=== PATIENT | female | born 1965 | race Two or more races ===

== ENCOUNTER 2016-05-23 20:31 | Emergency (ER) | payer MEDICAID ==
[~2016-05-23] VITALS: Ht 165.1 cm; Wt 63.5 kg
[2016-05-23 22:12] VITALS: BP 129/67
== END 2016-05-23 22:13 | disposition home or self-care (01) ==
LOC: ER 20:36
DX: J20.9 Acute bronchitis, unspecified (principal); F15.10 Other stimulant abuse, uncomplicated; F17.210 Nicotine dependence, cigarettes, uncomplicated
CPT/HCPCS: 71020

== ENCOUNTER 2017-10-13 10:37 | Emergency (ER) | payer MEDICAID ==
[~2017-10-13] VITALS: Ht 157.5 cm; Wt 63.5 kg
[2017-10-13 10:45] VITALS: BP 126/80
== END 2017-10-13 11:30 | disposition home or self-care (01) ==
LOC: ER 10:37
DX: S71.152D Open bite, left thigh, subsequent encounter (principal); F17.210 Nicotine dependence, cigarettes, uncomplicated; Z98.51 Tubal ligation status; W54.0XXD Bitten by dog, subsequent encounter

== ENCOUNTER → 2019-07-12 | Emergency (ER) | payer MEDICAID ==
[~2019-07-12] VITALS: Ht 149.9 cm; Wt 63.5 kg
[~2019-07-12] MED LIST: KETOROLAC TROMETH 15 mg/ml 1ML VL IV ONE; KETOROLAC TROMETH 30 MG/ML 1ML VIAL ONE; ONDANSETRON HCL 4 MG/2 ML VIAL IV ONE; PROMETHAZINE HCL 25 MG/ML 1ML IV ONE; SODIUM CHLORIDE 0.9% 1,000 ML IV ONE; SODIUM CHLORIDE 0.9% 2,000 ML IV ONE
[2019-07-12 05:29] LABS: Basophils # (auto) 0 10 ^3/uL (0-0.2); Basophils % (auto) 0.3 % (0.0-2.0); Eosinophils # (auto) 0.3 10 ^3/uL (0-0.8); Eosinophils % (auto) 3.1 % (0.0-7.0); Hematocrit 37.5 % (36.0-46.0); Hemoglobin 12.5 g/dL (12.2-16.2); Lymphocytes # (auto) 2.8 10 ^3/uL (0.4-5.4); Lymphocytes % (auto) 31.3 % (10.0-50.0); Mean Corpuscular Hgb Conc. 33.4 g/dL (32.0-36.0); Mean Corpuscular Volume 90.1 fL (80.0-100.0); Monocytes # (auto) 0.6 10 ^3/uL (0-1.3); Monocytes % (auto) 6.5 % (0.0-12.0); Neutrophils # (auto) 5.3 10 ^3/uL (1.6-8.6); Neutrophils % (auto) 58.8 % (37.0-80.0); Platelet Count (auto) 398 10^3/uL (140-450); Red Blood Cells 4.16 10^6/uL (4.0-5.20); Red Cell Distribution Width 12.8 % (11.8-14.3)
[2019-07-12 05:43] LABS: INR 1.01 (0.9-1.15)
[2019-07-12 05:46] LABS: Acetaminophen < 2.0 ug/mL (10-30); Alanine Aminotransferase 20 U/L (13-56); Albumin 3.5 g/dL (3.4-5.0); Amylase 46 U/L (25-115); Anion Gap 7 (5-15); Aspartate Aminotransferase 12 U/L (15-37); BUN/Creatinine Ratio 27.3; Blood Alcohol < 3.0 mg/dL (0-5); Blood Urea Nitrogen 12 mg/dL (7-18); Calcium 9.1 mg/dL (8.5-10.1); Carbon Dioxide 25 mmol/L (21-32); Chloride 103 mmol/L (98-107); GFR African American 191 mL/min; GFR Non-African American 158 mL/min; Glucose 119 mg/dL (74-106); Lipase 81 U/L (73-393); Magnesium 1.6 mg/dL (1.6-2.6); Potassium 3.5 mmol/L (3.5-5.1); Salicylate < 1.7 mg/dL (2.8-20.0); Sodium 135 mmol/L (136-145)
[2019-07-12 05:50] LABS: Alkaline Phosphatase 100 U/L (45-117); Bilirubin, Total 0.4 mg/dL (0.2-1.0); Total Protein 7.5 g/dL (6.4-8.2)
[2019-07-12 06:47] LABS: Urine Bacteria NONE SEEN /hpf (None Seen); Urine Blood Negative /uL (Negative); Urine Specific Gravity 1.009 (1.001-1.035); Urine WBC <1 /hpf (0 - 5)
[2019-07-12 07:10] LABS: Alcohol, Urine < 3.0 mg/dL (0-5); Amphetamine Screen, Urine POSITIVE (NEGATIVE); Barbiturate Scree,Urine NEGATIVE (NEGATIVE); Benzodiazephine Screen, Urine NEGATIVE (NEGATIVE); Cannabinoid Screen, Urine POSITIVE (NEGATIVE); Cocaine Screen, Urine NEGATIVE (NEGATIVE); Opiate Scree,Urine NEGATIVE (NEGATIVE); Phencyclidine Screen, Urine NEGATIVE (NEGATIVE)
[2019-07-12 08:02] VITALS: BP 105/58
== END | disposition home or self-care (01) ==
LOC: EDUNIT# 04:23 → EDBD 04:37 → ER 04:37
DX: K29.00 Acute gastritis without bleeding (principal); K59.00 Constipation, unspecified; E86.0 Dehydration; F19.10 Other psychoactive substance abuse, uncomplicated
CPT/HCPCS: 36415; 71045; 74176; 80053; 80307; 80320; 80329; 81001; 82150; 83690; 83735; 85025; 85610; 85730; 96361; 96374; 96375; 99285; J1885; J2405; J2550; J7030; 93005

== ENCOUNTER 2023-05-20 20:25 | Emergency (ER) | payer MEDICAID, OTHER ==
[~2023-05-20] VITALS: Ht 149.9 cm; Wt 71.3 kg
[2023-05-20] MEDS ORDERED: CYCL-837 PO (23:38)
[2023-05-20] MEDS ORDERED: IBUP-1456 PO (23:38)
[2023-05-20 23:45] VITALS: PULSE 107; RESP 18; O2SAT 98
[2023-05-20] MEDS ORDERED: KETOROLAC TROMETH 60MG/2ML VIAL IM ONE (23:45)
[2023-05-20 23:52] VITALS: BP 121/73; PULSE 107; RESP 18; TEMP 98.4; O2SAT 98
== END 2023-05-20 23:38 | disposition home or self-care (01) ==
LOC: ER 20:25
DX: M54.42 Lumbago with sciatica, left side (principal); F17.210 Nicotine dependence, cigarettes, uncomplicated; Z79.1 Long term (current) use of non-steroidal anti-inflammatories (NSAID); Z79.899 Other long term (current) drug therapy
CPT/HCPCS: 96372; 99283; J1885

== ENCOUNTER 2023-08-30 16:59 | Emergency (ER) | payer OTHER ==
[~2023-08-30] VITALS: Ht 149.9 cm; Wt 66.6 kg
[~2023-08-30 16:59] MED LIST changes: +CYCL-837 PO; +IBUP-1456 PO; -KETOROLAC TROMETH 15 mg/ml 1ML VL IV ONE; -KETOROLAC TROMETH 30 MG/ML 1ML VIAL ONE; -ONDANSETRON HCL 4 MG/2 ML VIAL IV ONE; -PROMETHAZINE HCL 25 MG/ML 1ML IV ONE; -SODIUM CHLORIDE 0.9% 1,000 ML IV ONE; -SODIUM CHLORIDE 0.9% 2,000 ML IV ONE
[2023-08-30 17:15] VITALS: BP 146/71; PULSE 128; RESP 18; TEMP 99.5; O2SAT 96
[2023-08-30] MEDS ORDERED: IBUP-1455 PO (19:31)
[2023-08-30] MEDS ORDERED: CYCL-611 PO (19:31)
[2023-08-30] MEDS: DexAMETHasone SOD PHOS 10MG/1ML VIAL INJ IM ONE (21:01)
[2023-08-30] MEDS: KETOROLAC TROMETH 60MG/2ML VIAL IM ONE (21:02)
== END 2023-08-30 22:30 | disposition home or self-care (01) ==
LOC: ER 16:59
DX: S33.5XXA Sprain of ligaments of lumbar spine, initial encounter (principal); S76.012A Strain of muscle, fascia and tendon of left hip, initial encounter; S76.011A Strain of muscle, fascia and tendon of right hip, initial encounter; M54.40 Lumbago with sciatica, unspecified side; M62.838 Other muscle spasm; F17.210 Nicotine dependence, cigarettes, uncomplicated; F15.90 Other stimulant use, unspecified, uncomplicated; Z98.890 Other specified postprocedural states; Z79.899 Other long term (current) drug therapy; W18.39XA Other fall on same level, initial encounter; Y93.89 Activity, other specified; Y92.89 Other specified places as the place of occurrence of the external cause; Y99.8 Other external cause status
CPT/HCPCS: 74176; 96372; 99285; J1100; J1885